=== PATIENT | female | born 1975 | race Native Hawaiian/Other Pacific Islander ===

== ENCOUNTER → 2016-09-14 19:39 | Outpatient (CLI) | payer OTHER | END | disposition home or self-care (01) | LOC: AMB 19:39 | DX: R73.9 Hyperglycemia, unspecified (principal) ==

== ENCOUNTER 2017-02-28 20:33 | Inpatient (IN) | payer OTHER ==
[~2017-02-28] VITALS: Ht 157.5 cm; Wt 45.4 kg
[2017-02-28 20:53] VITALS: BP 113/89; TEMP 98.3
[2017-02-28 21:24] LABS: PLATELET COUNT 289 K/uL (152-353)
[2017-02-28 21:32] LABS: POTASSIUM 4.2 mmol/L (3.6-5.2); SODIUM 125 mmol/L (136-145)
[2017-02-28 22:40] VITALS: BP 128/102; TEMP 98.3
[2017-02-28 23:07] VITALS: BP 128/102; TEMP 98.3; Ht 157.5 cm; Wt 45.4 kg
[2017-03-01] VITALS (13 sets, daily range): BP systolic 109–136; BP diastolic 76–96; TEMP 98.4–98.7
[2017-03-01] MEDS ORDERED: GABA300C2 PO (09:44)
[2017-03-01] MEDS ORDERED: LIPITOR80 MG PO (09:44)
[2017-03-01] MEDS ORDERED: LISI10TA11 PO (09:45)
[2017-03-01] MEDS ORDERED: INSU100I2 SC ×2 (09:46→09:48)
[2017-03-01] MEDS ORDERED: HUMALOG KWI100 MG/ML SC (09:48)
[2017-03-01 10:00] LABS: PLATELET COUNT 263 K/uL (152-353)
[2017-03-01 10:04] LABS: POTASSIUM 3.4 mmol/L (3.6-5.2); SODIUM 136 mmol/L (136-145)
[2017-03-02] VITALS: BP 118/87; TEMP 97
[2017-03-02 05:57] LABS: PLATELET COUNT 264 K/uL (152-353)
[2017-03-02 06:08] LABS: POTASSIUM 3.8 mmol/L (3.6-5.2); SODIUM 136 mmol/L (136-145)
[2017-03-02 08:00] VITALS: BP 116/78; TEMP 98.5
[2017-03-02 11:00] VITALS: BP 94/53
[2017-03-02 16:27] VITALS: BP 112/78; TEMP 98.8
== END 2017-03-02 18:36 | disposition left against medical advice (07) | DRG 639 ==
LOC: ED 20:33 → ICU 21:45 → MED/SURG 03-02 10:57
DX: E10.10 Type 1 diabetes mellitus with ketoacidosis without coma (principal); Z79.4 Long term (current) use of insulin; E83.51 Hypocalcemia; E87.6 Hypokalemia; I10 Essential (primary) hypertension; F12.90 Cannabis use, unspecified, uncomplicated
CPT/HCPCS: 36415; 36600; 80053; 80307; 81000; 81002; 82805; 82948; 82962; 83036; 84443; 85027; 96361; 96365; 96372; 96375; 99285; G0479; J1650; J1815; J2405; J3490

== ENCOUNTER 2018-09-17 13:29 | Observation (INO) | payer BC ==
[~2018-09-17] VITALS: Ht 162.6 cm; Wt 50.9 kg
[2018-09-17] VITALS (13 sets, daily range): BP systolic 106–161; BP diastolic 69–101; TEMP 97.8–97.9; Ht 162.6 cm; Wt 50.9 kg
[~2018-09-17 13:29] MED LIST: GABA300C2 PO; HUMALOG KWI100 MG/ML SC; INSU100I2 SC; LIPITOR80 MG PO; LISI10TA11 PO
[2018-09-17 14:06] LABS: PLATELET COUNT 342 K/uL (152-353)
[2018-09-17 14:15] LABS: POTASSIUM 4.8 mmol/L (3.6-5.2)
[2018-09-18] VITALS: BP 121/80; TEMP 98.8
[2018-09-18 04:00] VITALS: BP 110/78; TEMP 98.6
[2018-09-18 08:00] VITALS: BP 114/76; TEMP 98.2
[2018-09-18 10:38] LABS: PLATELET COUNT 246 K/uL (152-353)
[2018-09-18 10:55] LABS: POTASSIUM 4.3 mmol/L (3.6-5.2)
== END 2018-09-18 17:45 | disposition other institution (70) ==
LOC: ED 13:29 → MED/SURG 18:40
PROVIDERS: Emergency Medicine; ADMIT Internal Medicine
DX: F19.159 Other psychoactive substance abuse with psychoactive substance-induced psychotic disorder, unspecified (principal); F15.10 Other stimulant abuse, uncomplicated; F12.20 Cannabis dependence, uncomplicated; F32.89 Other specified depressive episodes; E11.9 Type 2 diabetes mellitus without complications; F17.210 Nicotine dependence, cigarettes, uncomplicated
CPT/HCPCS: 80053; 80307; 81000; 81002; 82306; 83036; 83540; 84443; 85027; 96360; 96375; 99220; 99284; G0378; J1630; J1815; J2060

== ENCOUNTER 2019-12-08 15:29 | Emergency (ER) | payer BC ==
[~2019-12-08] VITALS: Ht 162.6 cm; Wt 69.9 kg
[2019-12-08 15:47] VITALS: TEMP 99.6
[2019-12-08 17:12] LABS: PLATELET COUNT 329 K/uL (152-353)
[2019-12-08 17:18] LABS: POTASSIUM 3.1 mmol/L (3.6-5.2)
[2019-12-08 22:05] VITALS: BP 130/65
== END 2019-12-08 22:05 | disposition still patient (30) ==
LOC: ED 15:29
PROVIDERS: Family Medicine
DX: E11.43 Type 2 diabetes mellitus with diabetic autonomic (poly)neuropathy (principal); K31.84 Gastroparesis; D72.828 Other elevated white blood cell count; Z79.4 Long term (current) use of insulin
CPT/HCPCS: 80053; 81000; 85027; 96360; 96372; 96375; 99284; J2405; J2550; J2765; J3490

== ENCOUNTER 2020-04-18 10:41 | Outpatient (CLI) | payer BC | END 2020-04-18 19:42 | disposition home or self-care (01) | LOC: RAD 10:41 | PROVIDERS: ATTEND Nurse Practitioner Family | DX: M54.12 Radiculopathy, cervical region (principal) ==

== ENCOUNTER 2020-05-19 13:42 | Outpatient (CLI) | payer BC | END 2020-05-19 21:16 | disposition home or self-care (01) | LOC: RAD 13:42 | PROVIDERS: ATTEND Nurse Practitioner | DX: M25.511 Pain in right shoulder (principal) ==

== ENCOUNTER 2021-07-24 09:17 | Outpatient (CLI) | payer BC | END 2021-07-24 19:04 | disposition home or self-care (01) | LOC: MAMMO 09:17 | PROVIDERS: ATTEND Registered Nurse | DX: Z12.31 Encounter for screening mammogram for malignant neoplasm of breast (principal) ==

== ENCOUNTER 2023-01-04 20:50 | Emergency (ER) | payer BC ==
[~2023-01-04] VITALS: Ht 162.6 cm; Wt 59.0 kg
[2023-01-04 21:30] VITALS: TEMP 97.9
[2023-01-04 21:33] LABS: PLATELET COUNT 299 K/uL (152-353)
[2023-01-04 21:41] LABS: POTASSIUM 3.3 mmol/L (3.6-5.2)
[2023-01-04 23:00] VITALS: BP 107/50
== END 2023-01-04 23:00 | disposition home or self-care (01) ==
LOC: ED 20:50
PROVIDERS: Family Medicine
DX: E16.2 Hypoglycemia, unspecified (principal); R41.82 Altered mental status, unspecified; F17.210 Nicotine dependence, cigarettes, uncomplicated
CPT/HCPCS: 36415; 80053; 82550; 85027; 96365; 96375; 99284; J2405; J2550; J7060